=== PATIENT | female | born 1945 | race Caucasian/White ===

== ENCOUNTER 2025-11-07 02:53 | Inpatient (IN) | payer MEDICARE ==
[~2025-11-07] VITALS: Ht 152.4 cm; Wt 39.5 kg
[2025-11-07] MEDS ORDERED: ACETAMINOPHEN 325 MG TAB PO PRN (03:40)
[2025-11-07] MEDS ORDERED: MG-AL HYDROXIDE/SIMETICONE 30 ML UDC PO PRN (03:40)
[2025-11-07] MEDS ORDERED: LORazepam 1 MG TAB PO PRN (03:50)
[2025-11-07] MEDS ORDERED: hydrOXYzine hydrochloride 50 MG/ML VIAL IM PRN (03:50)
[2025-11-07] MEDS ORDERED: Water, Sterile 10 ML VIAL IM SCH (04:00)
[2025-11-07] MEDS ORDERED: Water, Sterile 10 ML VIAL IM PRN (04:57)
[2025-11-07 05:06] VITALS: BP 138/69
[2025-11-07 06:27] LABS: BASO # 0.0 10*3/uL (0.0-0.1); BASO % 0.3 % (0.0-1.0); EOS # 0.1 10*3/uL (0.0-0.4); EOS % 1.7 % (1.0-4.0); MEAN CELL VOLUME 92.6 fl (81.0-99.0); MEAN CORPUSCULAR HGB 31.1 pg (27.0-31.0); MEAN PLATELET VOLUME 8.4 fl (9.6-12.3); MONO # 0.5 10*3/uL (0.1-1.0); MONO % 7.7 % (3.0-9.0); NEUT # 4.4 10*3/uL (2.3-7.9); NEUT % 64.2 % (47.0-73.0); NUCLEATED RED BLOOD CELL 0.0 % (0.0-0.0); NUCLEATED RED BLOOD CELL 0.0 10*3/uL (0.0-0.0); PLATELET COUNT AUTOMATED 258 10*3/uL (130-400); RED CELL DISTRI WIDTH 12.7 % (0-14.5)
[2025-11-07 06:52] LABS: BUN 22 mg/dl (9-23); LDL CHOLESTEROL 76 mg/dL (9-159); SGPT/ALT 22 U/L (5-49)
[2025-11-07 08:13] LABS: VITAMIN D, 25-HYDROXY 60.2 ng/mL (30-100)
[2025-11-07] MEDS ORDERED: Menthol/Zinc Oxide 4 GM THIN T SCH (09:00)
[2025-11-07] MEDS ORDERED: risperiDONE 1 MG TAB PO SCH (09:00)
[2025-11-07] MEDS ORDERED: ATENOLOL 25 MG TAB PO SCH (09:00)
[2025-11-07 09:33] VITALS: BP 112/62
[2025-11-07] MEDS ORDERED: Rivastigmine Tartrate 4.6 MG/24 HR PATCH T SCH (09:35)
[2025-11-07] MEDS ORDERED: SODIUM CHLORIDE 0.9% 500 ML IV ONE (14:40)
[2025-11-07] MEDS ORDERED: LORazepam 2 MG/ML VIAL IM ONE (15:00)
[2025-11-07] MEDS ORDERED: SODIUM CHLORIDE 0.9% 1,000 ML IV ONE (16:12)
[2025-11-07 20:00] VITALS: BP 98/45
[2025-11-07] MEDS ORDERED: Mirtazapine 15 MG TAB PO SCH (21:00)
[2025-11-08 07:38] LABS: BUN 24 mg/dl (9-23)
[2025-11-08 08:00] VITALS: BP 126/55
[2025-11-08] MEDS ORDERED: SODIUM CHLORIDE 0.9% 1,000 ML IV ONE (11:10)
[2025-11-08] MEDS ORDERED: LORazepam 2 MG/ML VIAL IM PRN (15:30)
[2025-11-08 20:00] VITALS: BP 124/52
[2025-11-09 07:50] LABS: BASO # 0.1 10*3/uL (0.0-0.1); BASO % 1.3 % (0.0-1.0); EOS # 0.1 10*3/uL (0.0-0.4); EOS % 2.9 % (1.0-4.0); MEAN CELL VOLUME 89.3 fl (81.0-99.0); MEAN CORPUSCULAR HGB 30.4 pg (27.0-31.0); MEAN PLATELET VOLUME 10.2 fl (9.6-12.3); MONO # 0.3 10*3/uL (0.1-1.0); MONO % 8.5 % (3.0-9.0); NEUT # 2.4 10*3/uL (2.3-7.9); NEUT % 63.7 % (47.0-73.0); NUCLEATED RED BLOOD CELL 0.0 % (0.0-0.0); NUCLEATED RED BLOOD CELL 0.0 10*3/uL (0.0-0.0); PLATELET COUNT AUTOMATED 102 10*3/uL (130-400); RED CELL DISTRI WIDTH 14.1 % (0-14.5)
[2025-11-09 08:00] VITALS: BP 150/78
[2025-11-09 08:10] LABS: BUN 21 mg/dl (9-23)
[2025-11-09 20:00] VITALS: BP 96/58
[2025-11-10 08:00] VITALS: BP 119/57
[2025-11-10] MEDS ORDERED: Rivastigmine Tartrate 9.5 MG/24 HR PATCH T SCH (09:00)
[2025-11-10 20:00] VITALS: BP 116/51
[2025-11-11 08:06] VITALS: BP 135/64
[2025-11-11] MEDS ORDERED: Menthol/Zinc Oxide 4 GM THIN T PRN (09:46)
[2025-11-11 20:00] VITALS: BP 119/66
[2025-11-12 06:32] LABS: BASO # 0.0 10*3/uL (0.0-0.1); BASO % 0.7 % (0.0-1.0); EOS # 0.1 10*3/uL (0.0-0.4); EOS % 3.1 % (1.0-4.0); MEAN CELL VOLUME 88.2 fl (81.0-99.0); MEAN CORPUSCULAR HGB 29.9 pg (27.0-31.0); MEAN PLATELET VOLUME 10.9 fl (9.6-12.3); MONO # 0.3 10*3/uL (0.1-1.0); MONO % 10.9 % (3.0-9.0); NEUT # 1.6 10*3/uL (2.3-7.9); NEUT % 52.9 % (47.0-73.0); NUCLEATED RED BLOOD CELL 0.0 % (0.0-0.0); NUCLEATED RED BLOOD CELL 0.0 10*3/uL (0.0-0.0); PLATELET COUNT AUTOMATED 116 10*3/uL (130-400); RED CELL DISTRI WIDTH 13.9 % (0-14.5)
[2025-11-12 09:00] VITALS: BP 118/61
[2025-11-12] MEDS ORDERED: RIVASTIGMINE 13.3 MG/24 HR TDM T SCH (10:00)
[2025-11-12 20:00] VITALS: BP 108/58
[2025-11-13 08:40] VITALS: BP 123/61
[2025-11-13 20:00] VITALS: BP 102/70
[2025-11-13] MEDS ORDERED: ARIPiprazole 5 MG TAB PO SCH (21:00)
[2025-11-14 06:18] LABS: BASO # 0.0 10*3/uL (0.0-0.1); BASO % 0.7 % (0.0-1.0); EOS # 0.1 10*3/uL (0.0-0.4); EOS % 2.2 % (1.0-4.0); MEAN CELL VOLUME 91.2 fl (81.0-99.0); MEAN CORPUSCULAR HGB 30.9 pg (27.0-31.0); MEAN PLATELET VOLUME 10.4 fl (9.6-12.3); MONO # 0.4 10*3/uL (0.1-1.0); MONO % 10.5 % (3.0-9.0); NEUT # 2.6 10*3/uL (2.3-7.9); NEUT % 62.6 % (47.0-73.0); NUCLEATED RED BLOOD CELL 0.0 % (0.0-0.0); NUCLEATED RED BLOOD CELL 0.0 10*3/uL (0.0-0.0); PLATELET COUNT AUTOMATED 136 10*3/uL (130-400); RED CELL DISTRI WIDTH 14.1 % (0-14.5)
[2025-11-14 08:00] VITALS: BP 140/73
[2025-11-14] MEDS ORDERED: LORazepam 1 MG TAB PO PRN ×2 (09:40→09:45)
[2025-11-14 20:00] VITALS: BP 97/70
[2025-11-15 08:00] VITALS: BP 129/53
[2025-11-15] MEDS ORDERED: MED. FROM HOME 1 EACH EA IM SCH (19:00)
[2025-11-15 20:00] VITALS: BP 117/50
[2025-11-15] MEDS ORDERED: ARIPiprazole 5 MG TAB PO SCH (21:00)
[2025-11-15 21:19] LABS: BILIRUBIN Negative (Negative); BLOOD Negative (Negative); CLARITY Clear (Clear); COLOR Yellow (Yellow); KETONE Negative (Negative); LEUKO ESTERASE 2+ (Negative); NITRITE Negative (Negative); PH 7.5 (4.5-8.0); SPECIFIC GRAVITY 1.020 (1.001-1.030); UROBILINOGEN 1.0 E.U./dl (0.0-1.0)
[2025-11-15 21:32] LABS: BACTERIA 1+; RBC 0-2 rbc/hpf (0-2); WBC 31-40 wbc/hpf (0-5)
[2025-11-16 07:50] VITALS: BP 115/53
[2025-11-16 20:00] VITALS: BP 118/57
[2025-11-17 07:00] LABS: BASO # 0.0 10*3/uL (0.0-0.1); BASO % 0.8 % (0.0-1.0); EOS # 0.1 10*3/uL (0.0-0.4); EOS % 1.6 % (1.0-4.0); MEAN CELL VOLUME 89.9 fl (81.0-99.0); MEAN CORPUSCULAR HGB 31.1 pg (27.0-31.0); MEAN PLATELET VOLUME 10.4 fl (9.6-12.3); MONO # 0.4 10*3/uL (0.1-1.0); MONO % 9.0 % (3.0-9.0); NEUT # 3.2 10*3/uL (2.3-7.9); NEUT % 66.2 % (47.0-73.0); NUCLEATED RED BLOOD CELL 0.0 % (0.0-0.0); NUCLEATED RED BLOOD CELL 0.0 10*3/uL (0.0-0.0); PLATELET COUNT AUTOMATED 141 10*3/uL (130-400); RED CELL DISTRI WIDTH 14.5 % (0-14.5)
[2025-11-17 08:00] VITALS: BP 127/47
[2025-11-17 08:09] LABS: BUN 16 mg/dl (9-23); SGPT/ALT 11 U/L (5-49)
[2025-11-17 20:00] VITALS: BP 106/58
[2025-11-18 06:06] VITALS: BP 111/42
[2025-11-18 20:00] VITALS: BP 111/41
[2025-11-19 08:00] VITALS: BP 130/47
[2025-11-19] MEDS ORDERED: CARBAMIDE PEROXIDE OTIC 15 ML BOTTLE OT SCH (19:00)
[2025-11-19 20:00] VITALS: BP 135/47
[2025-11-20 06:47] LABS: BUN 15 mg/dl (9-23); SGPT/ALT 11 U/L (5-49)
[2025-11-20 06:48] LABS: BASO # 0.0 10*3/uL (0.0-0.1); BASO % 1.2 % (0.0-1.0); EOS # 0.1 10*3/uL (0.0-0.4); EOS % 1.8 % (1.0-4.0); MEAN CELL VOLUME 89.2 fl (81.0-99.0); MEAN CORPUSCULAR HGB 30.2 pg (27.0-31.0); MEAN PLATELET VOLUME 10.0 fl (9.6-12.3); MONO # 0.3 10*3/uL (0.1-1.0); MONO % 9.7 % (3.0-9.0); NEUT # 1.9 10*3/uL (2.3-7.9); NEUT % 58.7 % (47.0-73.0); NUCLEATED RED BLOOD CELL 0.0 % (0.0-0.0); NUCLEATED RED BLOOD CELL 0.0 10*3/uL (0.0-0.0); PLATELET COUNT AUTOMATED 143 10*3/uL (130-400); RED CELL DISTRI WIDTH 14.8 % (0-14.5)
[2025-11-20 07:35] VITALS: BP 122/64
[2025-11-20] MEDS ORDERED: RIVASTIGMINE1 EAC2 T (09:25)
[2025-11-20] MEDS ORDERED: HOMEMED IM (09:25)
[2025-11-20] MEDS ORDERED: FLUVOXAMINE50 MG PO (09:25)
[2025-11-20] MEDS ORDERED: ARIPIPRAZOLE5 MG PO (09:25)
== END 2025-11-20 13:54 | disposition home or self-care (01) | DRG 885 ==
LOC: 3N 02:53
PROVIDERS: Counselor Professional; Internal Medicine; Nurse Practitioner Women's Health; Registered Nurse; ADMIT Psychiatry & Neurology Psychiatry; ATTEND Psychiatry & Neurology Psychiatry
PROC: GZHZZZZ Group Psychotherapy (ICD-10-PCS; principal; 2025-11-07)
PROC: GZ56ZZZ Individual Psychotherapy, Supportive (ICD-10-PCS; 2025-11-07)
DX: F33.3 Major depressive disorder, recurrent, severe with psychotic symptoms (principal); E43 Unspecified severe protein-calorie malnutrition; F50.00 Anorexia nervosa, unspecified; N17.0 Acute kidney failure with tubular necrosis; F02.83 Dementia in other diseases classified elsewhere, unspecified severity, with mood disturbance; F02.84 Dementia in other diseases classified elsewhere, unspecified severity, with anxiety; D61.818 Other pancytopenia; I10 Essential (primary) hypertension; K21.9 Gastro-esophageal reflux disease without esophagitis; I34.1 Nonrheumatic mitral (valve) prolapse; R63.4 Abnormal weight loss; F42.9 Obsessive-compulsive disorder, unspecified; D72.819 Decreased white blood cell count, unspecified; M79.7 Fibromyalgia; G30.9 Alzheimer's disease, unspecified; K58.9 Irritable bowel syndrome, unspecified; Z88.8 Allergy status to other drugs, medicaments and biological substances; Z91.09 Other allergy status, other than to drugs and biological substances; Z98.42 Cataract extraction status, left eye; Z98.41 Cataract extraction status, right eye; Z68.39 Body mass index [BMI] 39.0-39.9, adult